=== PATIENT | female | born 1980 | race Hispanic/Latino ===

== ENCOUNTER 2017-02-25 17:02 | Emergency (ER) | payer SELFPAY ==
[2017-02-25 18:43] LABS: Hemoglobin 13.6 gm/dl (10.1-14.3); Mean Corpuscular HGB Conc 33 % (30-34); Mean Corpuscular Hemoglobin 30 pg (28-32); Mean Corpuscular Volume 91 fl (79-97); Platelet Count 231 K/mm3 (140-440); Red Blood Count 4.53 M/mm3 (3.65-5.03); Red Cell Distribution Width 14.2 % (13.2-15.2); White Blood Count 8.7 K/mm3 (4.5-11.0)
[2017-02-25 18:59] LABS: Anion Gap 17 mmol/L; Blood Urea Nitrogen 8 mg/dL (7-17); Calcium 9.3 mg/dL (8.4-10.2); Carbon Dioxide 28 mmol/L (22-30); Chloride 98.1 mmol/L (98-107); Glucose 101 mg/dL (65-100); Potassium 4.6 mmol/L (3.6-5.0); Sodium 138 mmol/L (137-145)
[2017-02-25 22:11] LABS: Urine Drugs of Abuse Note Disclamer
[2017-02-25 23:12] LABS: Bilirubin,Urine Negative (Negative); Blood,Urine Negative (Negative); Ketones,Urine Negative (Negative)
[2017-02-25 23:13] LABS: Nitrite,Urine Negative (Negative); Protein,Urine <15 mg/dL mg/dL (Negative); Urobilinogen,Urine < 2.0 mg/dL (<2.0)
[2017-02-25 23:14] LABS: Bacteria,Urine 1+ /HPF (Negative); Leukocyte Esterase,Urine Small (Negative)
[2017-02-25 23:16] LABS: Mucus,Urine Few /HPF
[2017-02-26] MEDS ORDERED: NACL 0.9% 1000 ML 1,000 ML IV ONE (00:08)
[2017-02-26] MEDS ORDERED: PEPCID IV ONE (00:08)
[2017-02-26] MEDS ORDERED: TORADOL IV ONE (00:08)
--- NOTE | 2017-02-26 00:10 | Emergency Department Report ---
ED General Adult HPI - General Chief complaint: Pain General Stated complaint: JAW PAIN/STOMACH PAIN/DIZZINESS Time Seen by Provider: 02/26/17 00:00 Source: patient, RN notes reviewed Mode of arrival: Ambulatory Limitations: No Limitations - History of Present Illness Initial comments: This is a 36-year-old female. She is previously unknown to me. She does not have a primary care doctor. The patient presents to the ER with multiple complaints. The patient's first complaint is left-sided ear pain. She thinks that she punctured her eardrum a few weeks ago after turning her head into a branch accidentally. She complains of left-sided ear pain, intermittent dizziness, intermittent bleeding. The patient's last complaint is jaw pain. The jaw pain is near tooth #17/18. This has been present for weeks to months. There is no trismus, stridor, malocclusion. The patient reports sensitivity to cold and heat. There is pain with chewing and swallowing food. The patient says complaint is abdominal pain. Abdominal pain is right flank, and epigastric. It has been present for months. It increases with palpation and decreases with rest. Patient denies hematemesis, bright red blood per rectum, irritated and obstructive urinary symptoms, and she denies vaginal discharge. The patient says complaint is chest pain. The chest pain is subxiphoid. It does not radiate to the back, arms or neck. It has been present since 12:00. There is no leg pain. There is no leg swelling. No recent trips greater than 4 hours. No recent hospital admissions. Patient does not take aspirin. There is no family history of heart disease that she is aware of. -: Gradual Location: head, mouth, chest, abdomen Quality: aching Consistency: intermittent Improves with: other (as per history of present illness) Worsens with: other (as per history of present illness) Associated Symptoms: chest pain, headaches, loss of appetite - Related Data Previous Rx's Medication Instructions Recorded Last Taken Type Ciprofloxacin 0.2%(Nf) 0.25 ml BID #2 dropper 02/26/17 Unknown Rx [Ciprofloxacin OTIC] Famotidine [Pepcid] 20 mg PO BID #60 tablet 02/26/17 Unknown Rx Ondansetron [Zofran Odt] 4 mg PO Q6HR PRN #30 tab.rapdis 02/26/17 Unknown Rx Penicillin Vk [Veetids TAB] 500 mg PO QID #40 tablet 02/26/17 Unknown Rx Allergies Allergy/AdvReac Type Severity Reaction Status Date / Time No Known Allergies Allergy Unverified 02/25/17 18:14 ED Review of Systems ROS: Stated complaint: JAW PAIN/STOMACH PAIN/DIZZINESS Other details as noted in HPI Constitutional: malaise Eyes: denies: vision change ENT: ear pain Respiratory: see HPI Cardiovascular: chest pain Gastrointestinal: abdominal pain Genitourinary: denies: dysuria Musculoskeletal: as per HPI Skin: denies: lesions Neurological: weakness Psychiatric: anxiety ED Past Medical Hx - Past Medical History Previous Medical History?: No - Surgical History Hx Cholecystectomy: Yes Additional Surgical History: right knee - Social History Smoking Status: Current Every Day Smoker Substance Use Type: None - Medications Home Medications: Home Medications Medication Instructions Recorded Confirmed Last Taken Type Ciprofloxacin 0.2%(Nf) 0.25 ml BID #2 dropper 02/26/17 Unknown Rx [Ciprofloxacin OTIC] Famotidine [Pepcid] 20 mg PO BID #60 tablet 02/26/17 Unknown Rx Ondansetron [Zofran Odt] 4 mg PO Q6HR PRN #30 tab.rapdis 02/26/17 Unknown Rx Penicillin Vk [Veetids TAB] 500 mg PO QID #40 tablet 02/26/17 Unknown Rx ED Physical Exam - General Limitations: No Limitations General appearance: alert, in no apparent distress - Head Head exam: Present: atraumatic, normocephalic - Eye Eye exam: Present: normal appearance, PERRL, EOMI. Absent: nystagmus - ENT ENT exam: Present: normal exam, mucous membranes moist, normal external ear exam , other (patient has poor dentition, tooth #17/18 is eroded, with no obvious gingival swelling or erythema. There is no stridor, trismus or malocclusion.). Absent: TM's normal bilaterally (the right tympanic membrane is within normal limits. There is no mastoid tenderness. The left tympanic membrane is partially obscured, there is dried blood in the external auditory canal. The left helix is nontender, left mastoid is nontender) - Neck Neck exam: Present: normal inspection, full ROM. Absent: tenderness, meningismus - Respiratory Respiratory exam: Present: normal lung sounds bilaterally, chest wall tenderness , other (patient has reproducible anterior chest wall tenderness, the bilateral breast exam is unremarkable, during the breast examination, I am escorted by ER nurse Sunny Jacobs). Absent: respiratory distress, wheezes, rales, rhonchi , stridor - Cardiovascular Cardiovascular Exam: Present: regular rate, normal rhythm, normal heart sounds. Absent: bradycardia, tachycardia, irregular rhythm, systolic murmur, diastolic murmur, rubs, gallop - GI/Abdominal GI/Abdominal exam: Present: soft, tenderness, normal bowel sounds, other (there is right upper quadrant, right flank tenderness.). Absent: distended, guarding , rebound, rigid, pulsatile mass - Extremities Exam Extremities exam: Present: normal inspection, full ROM, normal capillary refill. Absent: tenderness, pedal edema, joint swelling, calf tenderness - Back Exam Back exam: Present: normal inspection, full ROM. Absent: tenderness, CVA tenderness (R), CVA tenderness (L), muscle spasm, paraspinal tenderness, vertebral tenderness - Neurological Exam Neurological exam: Present: alert, oriented X3, normal gait, other (Extraocular movements intact. Tongue midline. No facial droop. Facial sensation intact to light touch in the V1, V2, V3 distribution bilaterally. 5 and 5 strength in 4 extremities.. Sensation is intact to light touch in 4 extremities.). Absent : motor sensory deficit - Psychiatric Psychiatric exam: Present: anxious - Skin Skin exam: Present: warm, dry, intact, normal color. Absent: rash ED Course Vital Signs 02/25/17 02/26/17 02/26/17 18:09 00:27 00:40 Temperature 98.2 F Pulse Rate 94 H Respiratory 18 Rate Blood Pressure 137/94 111/74 Blood Pressure [Left] Blood Pressure [Right] O2 Sat by Pulse 100 99 100 Oximetry 02/26/17 02/26/17 02/26/17 00:53 01:00 01:14 Temperature Pulse Rate 79 Respiratory 20 20 Rate Blood Pressure 92/49 Blood Pressure [Left] Blood Pressure 121/83 [Right] O2 Sat by Pulse 100 99 Oximetry 02/26/17 02/26/17 02/26/17 01:20 01:40 02:00 Temperature Pulse Rate Respiratory Rate Blood Pressure 121/83 108/68 108/68 Blood Pressure [Left] Blood Pressure [Right] O2 Sat by Pulse 98 100 97 Oximetry 02/26/17 02/26/17 02:20 05:03 Temperature 98.0 F Pulse Rate 70 Respiratory 20 Rate Blood Pressure 106/69 Blood Pressure 106/69 [Left] Blood Pressure [Right] O2 Sat by Pulse 99 98 Oximetry - Reevaluation(s) Reevaluation #1: 02/26/17 00:53 differential diagnosis: Vestibular, partial tympanic membrane rupture, GERD, gastritis, pneumonia, acute coronary syndrome, appendicitis, colitis, diverticulitis, conversion disorder, chronic dentalgia assessment and plan: 36-year-old female with a number of complaints, some of which are acute, some of which are not acute. Patient may have a partial tympanic membrane rupture. She has a GCS of 15, with an NIH score of 0, does not appear to be obviously superinfected. To the charge nurse/triage nurse she complained of headache, blurry vision and dizziness. To me she does not endorse any symptoms. She has a GCS of 15, with an NIH score of 0, no obvious cranial nerve deficits, ambulatory to the steady gait. She will be started on ciprofloxacin otic drops, and she can follow up with otolaryngology specialist. She has a chronically decayed tooth #17/18, she needs to follow-up with a dentist for this. This is the most likely etiology of her jaw pain. She is instructed to follow up with a dentist for this. Chest pain is atypical, present for approximately 12 hours. Low risk by ENRIQUETA score, low risk by heart score, no pulmonary embolus or DVT risk factors, low risk by well's criteria perc negative. EKG morphologically within normal limits 2, troponin unremarkable 2, the patient can follow up with an outpatient gear tester to complete an acute coronary syndrome risk stratification. Abdominal pain is acute on chronic, apparently patient had a history of cholecystectomy. We will obtain a CT scan of the abdomen and pelvis to exclude surgical disease. Urine toxicology screen is appreciated. Currently, the patient is clinically sober. She is not homicidal or suicidal. She appears to be fairly anxious. She does not require 1013 at this time. On multiple re-evaluations, she is noted to be playing on a cellular phone, and drawing in an art book. Reevaluation #2: 02/26/17 03:49 patient has been observed in the ER for a prolonged period of time. There is no active vomiting. She is sleeping comfortably. Her CT scans have not demonstrated any significant disease. She will be discharged at this time. She is to follow-up with an outpatient dentist, primary care doctor. She can follow-up with otolaryngology at her convenience. ED Medical Decision Making - Lab Data Result diagrams: 02/25/17 18:27 02/25/17 18:27 Vital Signs 02/25/17 02/26/17 18:09 00:53 Temperature 98.2 F Pulse Rate 94 H 79 Respiratory 18 20 Rate Blood Pressure 137/94 Blood Pressure 121/83 [Right] O2 Sat by Pulse 100 100 Oximetry Lab Results 02/25/17 02/25/17 02/25/17 Range/Units 18:27 18:27 22:41 WBC 8.7 (4.5-11.0) K/mm3 RBC 4.53 (3.65-5.03) M/mm3 Hgb 13.6 (10.1-14.3) gm/dl Hct 41.0 (30.3-42.9) % MCV 91 (79-97) fl MCH 30 (28-32) pg MCHC 33 (30-34) % RDW 14.2 (13.2-15.2) % Plt Count 231 (140-440) K/mm3 Sodium 138 (137-145) mmol/L Potassium 4.6 (3.6-5.0) mmol/L Chloride 98.1 (98-107) mmol/L Carbon Dioxide 28 (22-30) mmol/L Anion Gap 17 mmol/L BUN 8 (7-17) mg/dL Creatinine 0.5 L (0.7-1.2) mg/dL Estimated GFR > 60 ml/min BUN/Creatinine Ratio 16.00 % Glucose 101 H (65-100) mg/dL Calcium 9.3 (8.4-10.2) mg/dL Troponin T < 0.010 (0.00-0.029) ng/mL Urine Color Straw (Yellow) Urine Turbidity Clear (Clear) Urine pH 7.0 (5.0-7.0) Ur Specific [place] 1.012 (1.003-1.030) Urine Protein <15 mg/dl (Negative) mg/dL Urine Glucose (UA) Negative (Negative) mg/dL Urine Ketones Negative (Negative) mg/dL Urine Blood Negative (Negative) Urine Nitrite Negative (Negative) Urine Bilirubin Negative (Negative) Urine Urobilinogen < 2.0 (<2.0) mg/dL Ur Leukocyte Esterase Small (Negative) Urine WBC (Auto) 1.0 (0.0-6.0) /HPF Urine RBC (Auto) 2.0 (0.0-6.0) /HPF U Epithel Cells (Auto) 11.0 (0-13.0) /HPF Urine Bacteria (Auto) 1+ (Negative) /HPF Urine Mucus Few /HPF Urine HCG, Qual Negative (Negative) Urine Opiates Screen Urine Methadone Screen Ur Barbiturates Screen Ur Phencyclidine Scrn Ur Amphetamines Screen U Benzodiazepines Scrn Urine Cocaine Screen U Marijuana (THC) Screen Drugs of Abuse Note 02/25/17 Range/Units 22:41 WBC (4.5-11.0) K/mm3 RBC (3.65-5.03) M/mm3 Hgb (10.1-14.3) gm/dl Hct (30.3-42.9) % MCV (79-97) fl MCH (28-32) pg MCHC (30-34) % RDW (13.2-15.2) % Plt Count (140-440) K/mm3 Sodium (137-145) mmol/L Potassium (3.6-5.0) mmol/L Chloride (98-107) mmol/L Carbon Dioxide (22-30) mmol/L Anion Gap mmol/L BUN (7-17) mg/dL Creatinine (0.7-1.2) mg/dL Estimated GFR ml/min BUN/Creatinine Ratio % Glucose (65-100) mg/dL Calcium (8.4-10.2) mg/dL Troponin T (0.00-0.029) ng/mL Urine Color (Yellow) Urine Turbidity (Clear) Urine pH (5.0-7.0) Ur Specific [place] (1.003-1.030) Urine Protein (Negative) mg/dL Urine Glucose (UA) (Negative) mg/dL Urine Ketones (Negative) mg/dL Urine Blood (Negative) Urine Nitrite (Negative) Urine Bilirubin (Negative) Urine Urobilinogen (<2.0) mg/dL Ur Leukocyte Esterase (Negative) Urine WBC (Auto) (0.0-6.0) /HPF Urine RBC (Auto) (0.0-6.0) /HPF U Epithel Cells (Auto) (0-13.0) /HPF Urine Bacteria (Auto) (Negative) /HPF Urine Mucus /HPF Urine HCG, Qual (Negative) Urine Opiates Screen Presumptive negative Urine Methadone Screen Presumptive negative Ur Barbiturates Screen Presumptive negative Ur Phencyclidine Scrn Presumptive negative Ur Amphetamines Screen Presumptive positive U Benzodiazepines Scrn Presumptive negative Urine Cocaine Screen Presumptive negative U Marijuana (THC) Screen Presumptive positive Drugs of Abuse Note Disclamer - EKG Data 02/26/17 00:56 EKG #1 demonstrates normal sinus, 92 bpm, normal intervals, normal axis, not morphologically consistent with STEMI, there is no prior EKG available for comparison. EKG #2 demonstrates normal sinus, 77 beats per minute, normal intervals, normal axis, not morphologically consistent with STEMI, there is no prior EKG available for comparison. - Radiology Data Radiology results: report reviewed, image reviewed interpreted by me: X-ray of the chest is negative for acute disease Noncontrast CT scan of the brain is negative for acute disease. Noncontrast CT scan of the facial bones is negative for acute disease. Multiple dental caries are noted. No active soft tissue swelling to suggest dental abscesses. CT scan of the abdomen and pelvis with IV contrast demonstrates no acute disease. Constipation is suggested. Appendix is within normal limits. Critical care attestation.: If time is entered above; I have spent that time in minutes in the direct care of this critically ill patient, excluding procedure time. ED Disposition Clinical Impression: Dentalgia, Otalgia of left ear, Chest pain Disposition: DISCHARGED TO HOME OR SELFCARE Is pt being admited?: No Does the pt Need Aspirin: No Condition: Stable Instructions: Chest Pain (ED) Additional Instructions: Take the medications as directed. Follow up with a dentist within the next 7- 10 days. Follow up with an product planner within the next [address] Tillman is a local otolaryngology specialist. Follow up with the primary care doctor or gear tester within the next 3-[address] Jay Fisher is a local primary care doctor. Dr. Chadwick is a local coronary clinical specialist. Avoid consumption of amphetamines and cocaine and illegal drugs. These are bad for your health. Consumption of these drugs can cause , disability, paralysis, permanent loss of quality of life. Return to the ER right away with new pain, worsened pain, migration of pain, fevers or chills, intractable nausea or vomiting, inability to tolerate liquid feeds. Prescriptions: Ciprofloxacin 0.2%(Nf) [Ciprofloxacin OTIC] 0.25 ml BID #2 dropper Famotidine [Pepcid] 20 mg PO BID #60 tablet Ondansetron [Zofran Odt] 4 mg PO Q6HR PRN #30 tab.rapdis PRN Reason: Nausea Penicillin Vk [Veetids TAB] 500 mg PO QID #40 tablet Referrals: PRIMARY CARE, [Primary Care Provider] - 3-5 Days JAY FISHER MD [Staff Physician] - 3-5 Days NICKY CHADWICK MD [Staff Physician] - 3-5 Days ADRIENNE TILLMAN MD [Staff Physician] - 3-5 Days [facility] [Outside] - 3-5 Days
[2017-02-26] MEDS ORDERED: REGLAN IV ONE (00:29)
--- NOTE | 2017-02-26 01:01 | XRay Report ---
FINAL REPORT EXAM: XR CHEST ROUTINE 2V HISTORY: cp COMPARISON: None available. FINDINGS:: Frontal and lateral views of the chest obtained. Cardiac silhouette is within normal limits. No focal consolidation or effusion. No pneumothorax. Visualized bony thorax is grossly intact. IMPRESSION:: No acute findings.
[2017-02-26 01:04] LABS: Alanine Aminotransferase 8 units/L (7-56); Albumin 4.3 g/dL (3.9-5); Albumin/Globulin Ratio 1.5 %; Alkaline Phosphatase 67 units/L (35-129); Bilirubin,Total 0.5 mg/dL (0.1-1.2); Lipase 26 units/L (13-60); Total Protein 7.1 g/dL (6.3-8.2)
[2017-02-26 01:05] LABS: Bilirubin,Direct < 0.2 mg/dL (0-0.2); Bilirubin,Indirect 0.3 mg/dL
[2017-02-26] MEDS ORDERED: NACL ONE (02:18)
--- NOTE | 2017-02-26 02:52 | Cat Scan Report ---
FINAL REPORT EXAM: CT HEAD/BRAIN WO CON HISTORY: Headache. COMPARISON: None available. TECHNIQUE: Axial images obtained skull base through vertex. FINDINGS: No acute intracranial hemorrhage, midline shift or pathologic extra axial fluid collection. Mild asymmetry lateral ventricles, anatomic variant. Otherwise, ventricles and cisterns are normal in size and configuration for the patient's age. Rivera-white differentiation preserved. Calvarium grossly intact. Mild mucosal thickening the paranasal sinuses. Mastoid air cells are clear. Visualized orbits are grossly unremarkable. IMPRESSION: No grossly acute intracranial abnormality.
--- NOTE | 2017-02-26 03:05 | Cat Scan Report ---
FINAL REPORT EXAM: CT FACIAL BONES WO CON HISTORY: JAW PAIN, THINKS SHE PUNCTURED LT TMJ TOOTH # 17/18 APPEAR DISE NO TRAUMA COMPARISON: None available. TECHNIQUE:: Axial images obtained through the facial bones. Additional sagittal and coronal reformatted images were obtained. FINDINGS:: Oribtal rims, zygomatic arches, ptyergoid plates, and mandible are intact. No depressed nasal bone fracture. No intraocular or retrobulbar hematoma. Optic nerves and extraocular musculature are symmetric in morphology. No hemorrhagic air fluid levels in the paranasal sinuses. Prominent periapical lucencies involving several of the teeth. There also several dental caries. No adjacent soft tissue swelling to suggest active dental abscess. TMJs are preserved. Minimal mucosal thickening along ethmoid air cell septations. Mild polypoid mucosal thickening the floor the right maxillary sinus. Visualized mastoid air cells and tympanic cavities are clear. IMPRESSION:: No acute facial fracture. Multiple dental caries and advanced periodontal disease. No adjacent soft tissue swelling to suggest active dental abscess at this time by noncontrast CT. Bilateral TMJs are preserved.
--- NOTE | 2017-02-26 03:24 | Cat Scan Report ---
FINAL REPORT EXAM: CT ABDOMEN PELVIS W CON HISTORY: ABD PAIN COMPARISON: None available. TECHNIQUE: Contiguous axial images were obtained. Additional sagittal and coronal reformatted images were obtained. Administration of IV contrast given per institution protocol. Images submitted for interpretation. 100 cc Omnipaque [id number]. FINDINGS: Mild linear atelectasis at the lung bases. Gallbladder surgically absent. The common bile duct measures 5 millimeters. Homogeneous enhancement of the liver, spleen, pancreas and adrenal glands. No solid renal lesion or hydronephrosis. Aorta and IVC normal in caliber. Urinary bladder, uterus, left ovary grossly unremarkable. Small cystic structures within the right ovary. The largest measures 1.71.2 centimeters compatible dominant follicle. Trace fluid in the pelvis within physiologic limits. Moderate to large amount of stool within the colon. No focal inflammatory changes the bowel. Appendix is normal in caliber and gas-filled. No fat stranding or fluid to suggest acute inflammation the appendix. Mild degenerative changes of the lumbar spine. Bony pelvis is grossly intact. IMPRESSION: Trace fluid in the pelvis within physiologic limits. Normal physiologic changes of the ovaries by CT. Moderate large amount of stool within the colon. No focal inflammatory changes the bowel. The appendix is normal in caliber. No other gross acute findings.
[2017-02-26 03:37] VITALS: BP 106/69
== END 2017-02-26 05:04 | disposition home or self-care (01) ==
LOC: ED 17:02
DX: H92.02 Otalgia, left ear (principal); R07.9 Chest pain, unspecified; K08.89 Other specified disorders of teeth and supporting structures; F17.200 Nicotine dependence, unspecified, uncomplicated
CPT/HCPCS: 36415; 70450; 70486; 71020; 74177; 80048; 80074; 80307; 81001; 81025; 83690; 84484; 85027; 93005; 93010; 96361; 96374; 96375; 99285; J1885; J2765; J7030; Q9967

== ENCOUNTER 2022-05-27 16:42 | Outpatient (CLI) | payer MEDICAID ==
[2022-05-27] MEDS ORDERED: LACTATED RINGERS 1,000 ML IV ONE (17:21)
[2022-05-27 18:12] LABS: Bilirubin,Urine NEG (Negative); Blood,Urine NEG (Negative); Color,Urine Yellow (Yellow); Protein,Urine <15 mg/dL mg/dL (Negative); Urobilinogen,Urine < 2.0 mg/dL (<2.0)
[2022-05-27 18:31] LABS: Mucus,Urine FEW /HPF
[2022-05-27 18:44] LABS: Amphetamine Screen,Urine Negative; Benzodiazepines Screen,Urine Negative; Cannabinoid Screen,Urine Negative; Cocaine Screen,Urine Negative; Methadone Screen,Urine Negative; Opiate Screen,Urine Negative
[2022-05-27 19:53] VITALS: BP 122/63
--- NOTE | 2022-05-27 21:40 | Ultrasound Report ---
ULTRASOUND OBSTETRIC INDICATION / CLINICAL INFORMATION: no care. Clinical Gestational Age (GA) in weeks, days: 29, 5 TECHNIQUE: Transabdominal. COMPARISON: None available. FINDINGS: Single intrauterine . Biparietal Diameter = 8.4 cm = 33, 5 weeks, days Head Circumference = 28.8 cm = 31, 5 weeks, days Abdominal Circumference = 28.1 cm = 32, 1 weeks, days Femur Length = 5.3 cm = 28, 2 weeks, days Average Ultrasound Age (AUA) = 31, 3 weeks, days Heart Rate: 143 beats per minute. Estimated Weight in grams (if calculated): 1688 Estimated Weight Growth Percentile (if calculated): 83 Position: cephalic. Cervix: closed. Length in cm (if measured): 4.0 Placenta: Anterior right lateral and free of the os. Placenta is grade 2 Amniotic Fluid Volume: normal Amniotic Fluid Index (HAMIDA) in cm (if calculated): 10.7. IMPRESSION: 1. Single, living intrauterine with estimated sonographic age of 31, 3 weeks, days. 2. No significant sonographic abnormality. Signer Name: Dominic Meraz DO Signed: 05/27/2022 9:36 PM Workstation Name: [id number]
== END 2022-05-27 20:28 | disposition home or self-care (01) ==
LOC: TRG 16:42 → APU 16:45 → TRG 20:28
PROVIDERS: ATTEND Obstetrics & Gynecology
DX: O47.03 False labor before 37 completed weeks of gestation, third trimester (principal); Z3A.32 32 weeks gestation of pregnancy
CPT/HCPCS: 76805; 76816; 80307; 81001